=== PATIENT | male | born 1970 | race Caucasian/White ===

== ENCOUNTER 2020-10-11 11:49 | Emergency (ER) | payer MEDICARE, MEDICAID, SELFPAY ==
--- NOTE | ~2020-10-11 | XR_ITS ---
EXAMINATION: XR hip RT min 2V EXAM DATE: 10/11/2020 12:45 INDICATION: fall this a.m.;pain, no wt bearing, not straightening Rt leg. TECHNIQUE: Right hip frontal, crosstable lateral projections for interpretation. There is no prior study for comparison. FINDINGS: Acute closed posttraumatic right femoral neck fracture with superior displacement and media l angulation. Lumbar fusion hardware. IMPRESSION: Right femoral neck fracture. Reviewed, dictated and finalized at location [facility]. [facility] [employer]
--- NOTE | 2020-10-11 11:55 | ED.GENADULT ---
HPI - General Adult General Chief complaint: Fall Stated complaint: FALL Time Seen by Provider: 10/11/20 11:55 Source: patient and family Mode of arrival: ambulatory Limitations: no limitations History of Present Illness HPI narrative: 50-year-old male patient presents to the [facility] accompanied by his mother and his ENT with complaints of a fall this morning. Patient does have a history of MR and is currently visiting his mother from a residential. Mother states that he was sitting at a table this morning putting together a puzzle. Mother states that she told him breakfast was ready and the next thing she knew she heard a loud noise and saw him on the floor on his right side. Mother states that he fell on carpet. Mother denies any loss of consciousness or hitting his head that she is aware of. Mother states that she did not see any obvious wounds however now he is not wanting to put weight on his right leg. Mother states he normally ambulates without any assistance. Mother states that she did give him 2 Aleve this morning. Patient is very poor historian due to MR history. Patient not complaining of any pain at this time. Mother is concerned about possibly a leg injury or possibly his back since he does have history of scoliosis and has a roshan in his back. Related Data Home Medications Medication Instructions Recorded Confirmed citalopram [Celexa] 10 mg PO DAILY 08/21/19 08/21/19 lorazepam 1 mg PO HS PRN 08/21/19 08/21/19 mirtazapine [Remeron] 15 mg PO DAILY 08/21/19 08/21/19 quetiapine [Seroquel] 100 mg PO BID 08/21/19 08/21/19 Allergies Allergy/AdvReac Type Severity Reaction Status Date / Time mirtazapine [From Remeron] Allergy Unknown Verified 08/21/19 09:21 nitrofurantoin Allergy Unknown Verified 10/11/20 12:11 [From Macrobid] Review of Systems Review of Systems: Narrative: CONSTITUTIONAL: Denies fever, chills, or sweats. EYES: Denies visual changes, redness, or discharge. ENT: Denies rhinorrhea, congestion, sore throat, or otalgia. CARDIOVASCULAR: Denies chest pain, palpitations, or edema. RESPIRATORY: Denies cough or dyspnea. GASTROINTESTINAL: Denies abdominal pain, nausea, vomiting, or diarrhea. GENITOURINARY: Denies dysuria or hematuria. SKIN: Denies rash or itching. MUSCULOSKELETAL: Denies back pain, joint pain, or myalgia. Positive fall onto right leg NEUROLOGIC: Denies headache, numbness, or weakness. PSYCHIATRIC: Denies anxiety or depression. [facility] Past Medical History Medical History (Updated 10/11/20 @ 12:48 by CHAZ Carter) Anemia Mental and behavioral problem OCD (obsessive compulsive disorder) Scoliosis With roshan in place Comments At the time of my signature I agree with nursing past medical history, surgical, social, and family history. There is no relevant family history pertinent to the presenting complaint. Exam Narrative: Exam Narrative: GENERAL: Well-appearing, well-nourished, and in no acute distress. HEAD: Normocephalic, atraumatic. EYES: PERRLA and EOMI. ENT: Nares clear, no rhinorrhea or epistaxis. Mucous membranes moist. NECK: Supple, no lymphadenopathy. No surface trauma, no soft tissue or muscle tenderness or spasm noted. Trachea midline. No subq emphysema or crepitus. No garrett tenderness, step-offs or deformity to firm Palpation at posterior midline. FROM without limitation or pain, normal flexion, extension,Lateral bending, rotation, and axial load. CHEST: Clear to auscultation. No respiratory distress. HEART: Regular rate and rhythm. No murmur heard. Normal peripheral pulses. ABDOMEN: Soft, nontender, nondistended, normal active bowel sounds. EXTREMITIES: Patient is unable to bear weight and ambulate on right leg. No surface trauma, STS, or obvious effusion. No overlying erythema or warmth. The R knee is without obvious asymmetry or deformity when compared to the L knee. Patient is able to do deep knee bend with symmetry but has pain, patient also complains of scott
[2020-10-11 12:05] VITALS: BP 128/68; PULSE 88; RESP 16; TEMP 36; O2SAT 100
== END 2020-10-11 13:10 | disposition short-term general hospital (02) ==
PROVIDERS: Emergency Provider Nurse Practitioner Family
DX: S72.001A Fracture of unspecified part of neck of right femur, initial encounter for closed fracture (principal); W19.XXXA Unspecified fall, initial encounter; F79 Unspecified intellectual disabilities; M41.9 Scoliosis, unspecified
CPT/HCPCS: 73502; 99215; G0463

== ENCOUNTER 2020-10-11 13:12 | Emergency (ER) | payer MEDICARE, MEDICAID, SELFPAY ==
[2020-10-11] VITALS (7 sets, daily range): BP systolic 126–164; BP diastolic 76–91; PULSE 87–98; RESP 15–18; TEMP 36.6; O2SAT 95–100
--- NOTE | 2020-10-11 13:40 | ED.LOWEXIN ---
HPI - Extremity Injury (Lower) General Chief Complaint: Extremity Injury, Lower Stated Complaint: HIP FRACTURE Time Seen by Provider: 10/11/20 13:20 Source: patient Mode of arrival: ambulatory Limitations: no limitations History of Present Illness HPI Narrative: Patient is a 50-year-old male brought here complaining of right hip pain after he tripped and fell at home, went to an urgent care had an x-ray done and showed a right femoral neck fracture. Patient has a history of MR, very poor historian. Related Data Home Medications Medication Instructions Recorded Confirmed citalopram [Celexa] 10 mg PO DAILY 08/21/19 08/21/19 lorazepam 1 mg PO HS PRN 08/21/19 08/21/19 mirtazapine [Remeron] 15 mg PO DAILY 08/21/19 08/21/19 quetiapine [Seroquel] 100 mg PO BID 08/21/19 08/21/19 Allergies Allergy/AdvReac Type Severity Reaction Status Date / Time mirtazapine [From Remeron] Allergy Unknown Verified 10/11/20 13:37 nitrofurantoin Allergy Unknown Verified 10/11/20 13:37 [From Macrobid] Review of Systems Review of Systems: All systems reviewed & are unremarkable except as noted in HPI and below Constitutional: Constitutional: Denies body ache(s), Denies chills, Denies excessive sweating, Denies fatigue, Denies fever(s), Denies headache(s), Denies lethargy, Denies malaise, Denies weakness and Denies weight loss Eyes: Eyes: Denies blurry vision, Denies change in vision and Denies loss of vision ENT: Denies dizziness, Denies ear discharge, Denies headache(s), Denies lip swelling, Denies epistaxis, Denies nasal congestion, Denies neck pain, Denies throat swelling and Denies tongue swelling Cardiovascular: Cardiovascular: Denies chest pain, Denies chest pain at rest, Denies chest pain with activity, Denies diaphoresis, Denies rapid heart rate, Denies edema, Denies irregular heart rhythm, Denies lightheadedness, Denies palpitations, Denies dyspnea and Denies dyspnea on exertion Respiratory: Respiratory: Denies chest congestion, Denies cough, Denies hemoptysis, Denies dyspnea and Denies dyspnea on exertion Gastrointestinal: Gastrointestinal: Denies abdominal pain, Denies melena, Denies hematochezia, Denies diarrhea, Denies nausea, Denies vomiting and Denies hematemesis Musculoskeletal: Musculoskeletal: Denies abnormal gait, Denies deformity, Denies joint swelling, Denies limited range of motion, Denies neck pain and Denies numbness Neurologic: Denies Abnormal speech present, Denies abnormal gait, Denies confusion, Denies dizziness, Denies headache(s), Denies focal weakness, Denies loss of vision, Denies numbness, Denies Other visual disturbances, Denies Sensory deficit (Neuro) and Denies weakness Psychiatric: Psychiatric: Denies confusion, Denies depression, Denies auditory hallucinations, Denies homicidal ideation and Denies suicidal ideation Endocrine: Endocrine: Denies cold intolerance, Denies excessive sweating, Denies fatigue, Denies heat intolerance and Denies palpitations Hematologic/Lymphatic: Hematologic/Lymphatic: Denies easy bleeding and Denies easy bruising Allergic/Immunologic: Allergic/Immunologic: Denies lip swelling, Denies throat swelling and Denies tongue swelling PMFSH Past Medical History Medical History (Updated 10/11/20 @ 14:48 by Ulises Snyder MD) Anemia Mental and behavioral problem OCD (obsessive compulsive disorder) Scoliosis With roshan in place Comments Social history: Non-smoker, no EtOH use, lives at a care home Exam Const: General: cooperative, healthy appearing, comfortable, no acute distress, well developed, alert and awake; No confusion Orientation/consciousness: patient oriented x3 HENMT: Head: normal to inspection, normocephalic and atraumatic Ears: hearing grossly normal bilaterally, TM normal on the right and TM normal on the left General nose exam: Normal external nose present, Normal nares present and No nasal discharge present Face and sinus: normal facial exam Mouth: Yes Norm
[2020-10-11] MEDS: LORazepam INJ (*CRX) 2 MG/ML VIAL 1 MG IV PUSH ×2 (13:54→20:14)
[2020-10-11] MEDS: LACTATED RINGERS 1,000 ML 125 ML IV CONT (13:54)
--- NOTE | 2020-10-11 14:19 | PC.NURSE ---
Pt's mother up to desk multiple times requesting pt to be transferred to [facility]. Explained that the process takes time to complete and we have to have an accepting physician. Xray has sent the films via trunk line and is in the process of making a disc. The pt's mother requests sending a disc by car to [facility] so that the physician can look at it; explained that the films will not leave the facility without the patient.
--- NOTE | 2020-10-11 14:28 | PC.NURSE ---
Pt's mother refuses EKG he's going to another hospital . Dr. Snyder made aware.
--- NOTE | 2020-10-11 14:36 | PC.NURSE ---
Called to room per pt's mother, states she's tired of waiting and is ready for him to go to the hospital in [place]. Explained that we have to have an accepting physician for this to happen. Requests EMS to be called to be enroute; explained have to have an accepting physician and facility prior to contacting EMS. Pt sitting on stretcher with knees bent, requests shoes to be put on and bracelet to be taken off.
--- NOTE | 2020-10-11 14:43 | PC.NURSE ---
Contacting [facility].
--- NOTE | 2020-10-11 15:12 | PC.NURSE ---
Per Dr. Snyder, the transfer line stated there was no beds available to accept the patient and that there probably wouldn't be until tomorrow. instruction assistant principal and this RN to bedside to explain to mother the delay in transfer. Offered orthopedic services here; mother states will contact the patients' father and will let us know.
--- NOTE | 2020-10-11 15:55 | PC.NURSE ---
Pt continues to rest on stretcher with bent knees. Denies pain when asked directly. Mother on phone states that the ortho surgeon she was in contact with is attempting to find a bed at [facility] in [place], where he is also on staff. Pt states if ortho is unable to do the surgery tonight, would like to admit the patient here and be transferred tomorrow to [facility]. Dr. Snyder made aware.
--- NOTE | 2020-10-11 16:24 | PC.NURSE ---
called [phone], no beds available, pt put on waiting list, maybe long wait a day or more.
--- NOTE | 2020-10-11 17:05 | PC.NURSE ---
Per Padmini at [facility] Access Line they will have a hospitalist or surgeon contact us regarding transfer of patient.
--- NOTE | 2020-10-11 17:25 | PC.NURSE ---
Dr. Zacarias from [facility] speaking with Dr. Snyder.
--- NOTE | 2020-10-11 17:50 | PC.NURSE ---
Report to MONICO Washington at [facility] ([phone]). Preparing to contact EMS for transportation to [facility]. Transfer paper signed per pt's mother (POA).
--- NOTE | 2020-10-11 18:02 | PC.NURSE ---
Chrissy calls to [facility] to transport patient, report will be here at 8pm to transport.
--- NOTE | 2020-10-11 19:00 | PC.NURSE ---
Assumed care of pt. Pt is alert on stretcher, family member at bedside.
--- NOTE | 2020-10-11 19:35 | PC.NURSE ---
I went and spoke to pt's mother regarding transportation for patient to be taken to [facility]. Bed number is [id number] verified by [email or web address] in admissions at [facility]. [facility] is due here at 8pm. Pts father called into the ER to request that we call an EMS service in [place]. I did inform him that we can call this service but we needed to verify that it is an appropriate service for the patient to be transported and that we do not have control over EMS services regarding their transport times and availability. I did speak with the mother and we discussed that at this time of the negrito it would be in the best interest of the patient to verify that [facility] would be arriving at the estimated time and if that would not be the case we would explore the option of other ems.
--- NOTE | 2020-10-11 20:00 | PC.NURSE ---
Talked with [facility] chimney supervisor brick and patient will not be able to transport patient tonight will be placed on hold until the am tomorrow. Discussed with mother of pt, (POA) and requested that I call [facility] service out of [facility] to see if they have availability to transport patient. Per the chimney supervisor brick on shift they are not available for transport this evening. Informed the mother and we will continue to look for transport.
--- NOTE | 2020-10-11 20:15 | PC.NURSE ---
[facility] accepted to transfer patient to [facility]. jey richmond
--- NOTE | 2020-10-11 20:20 | PC.NURSE ---
Pt's mother informed that [facility] has agreed to transport patient [place]. Arrangements all made will await their arrival.
--- NOTE | 2020-10-11 20:24 | PC.NURSE ---
Addendum entered by Naty Fernandez RN 10/11/20 20:29: Actual time on this note was 1950 Original Note: [facility] EMS service in [facility] was called to transport patient and per the textile supervisor on shift they are unable to transport tonight. Family informed and will continue to call other services for transport.
--- NOTE | 2020-10-11 21:16 | PC.NURSE ---
[facility] has arrived
== END 2020-10-11 21:37 | disposition short-term general hospital (02) ==
PROVIDERS: Emergency Provider Emergency Medicine
DX: S72.001A Fracture of unspecified part of neck of right femur, initial encounter for closed fracture (principal); F42.9 Obsessive-compulsive disorder, unspecified; F79 Unspecified intellectual disabilities; Z86.2 Personal history of diseases of the blood and blood-forming organs and certain disorders involving the immune mechanism; W01.0XXA Fall on same level from slipping, tripping and stumbling without subsequent striking against object, initial encounter
CPT/HCPCS: 73502; 96361; 96374; 96376; 99285; J2060; J7120